=== PATIENT | male | born 1980 | race Caucasian/White ===

== ENCOUNTER 2016-12-12 16:00 | Emergency (ER) | payer MEDICAID ==
[2016-04-19 14:11] VITALS: BMI 26.3
[~2016-12-12 16:00] MED LIST: EFFEXOR XR150 MG PO; HYDROCODON-ACE1 EAC7 PO; HYDROCODONE-APA1 TAB PO; KLONOPIN0.5 MG PO; LAMICTAL200 MG PO; LEVAQUIN500 MG PO; PERCOCET 5-3251 TAB PO; ROBAXIN500 MG PO; ZOFRAN ODT4 MG/UDTAB PO
[2016-12-12 17:40] LABS: BASOPHILS 0.3 % (0-2); EOSINOPHILS 2.2 % (0-7); HEMATOCRIT 46.6 % (42.0-54.0); HEMOGLOBIN 16.4 g/dL (13.5-17.5); IMMATURE GRANULOCYTES 0.1 % (0-5); LYMPHOCYTES 37.3 % (15-50); MCH 33.3 pg (26.0-34.0); MCHC 35.2 g/dL (31.0-37.0); MCV 94.7 fL (80.0-100.0); MEAN PLATELET VOLUME 10.1 fL (7.4-10.4); MONOCYTES 8.7 % (2-11); NEUTROPHILS 51.4 % (40-80); PLATELET COUNT 246 10x3/uL (130-400); RBC 4.92 10x6/uL (4.20-6.10); RDW 13.3 % (11.5-14.5); WBC 7.9 10x3/uL (4.8-10.8)
[2016-12-12 17:55] LABS: ALBUMIN 3.9 g/dL (3.4-5.0); ALKALINE PHOSPHATASE 111 U/L (46-116); ALT (SGPT) 30 U/L (10-68); BILIRUBIN - TOTAL 0.29 mg/dL (0.2-1.3); CALC OSMOLALITY 279 mosm/kg (275-300); CALCIUM 9.1 mg/dL (8.5-10.1); CARBON DIOXIDE 28.6 mmol/L (21.0-32.0); CHLORIDE - SERUM 104 mmol/L (98-107); CREATININE - SERUM 0.9 mg/dL (0.6-1.3); GLUCOSE 95 mg/dL (74-106); LIPASE 163 U/L (73-393); POTASSIUM - SERUM 3.7 mmol/L (3.5-5.1); PROTEIN - SERUM 7.2 g/dL (6.4-8.2); SODIUM 141 mmol/L (136-145); UREA NITROGEN 11 mg/dL (7-18); eGFR NON AFRICAN AMERICAN > 90 mL/min (90-120)
== END 2016-12-12 19:50 | disposition home or self-care (01) ==
LOC: D.ER 16:00
PROVIDERS: Emergency Medicine
DX: R10.31 Right lower quadrant pain (principal); K40.90 Unilateral inguinal hernia, without obstruction or gangrene, not specified as recurrent; J45.909 Unspecified asthma, uncomplicated; F17.200 Nicotine dependence, unspecified, uncomplicated

== ENCOUNTER 2017-05-06 18:19 | Emergency (ER) | payer MEDICAID ==
[2016-04-19 14:11] VITALS: BMI 26.3
[2017-05-06 18:48] LABS: BASOPHILS 0.2 % (0-2); EOSINOPHILS 0.9 % (0-7); HEMATOCRIT 50.7 % (42.0-54.0); HEMOGLOBIN 17.9 g/dL (13.5-17.5); IMMATURE GRANULOCYTES 0.4 % (0-5); LYMPHOCYTES 27.5 % (15-50); MCH 33.6 pg (26.0-34.0); MCHC 35.3 g/dL (31.0-37.0); MCV 95.1 fL (80.0-100.0); MEAN PLATELET VOLUME 10.1 fL (7.4-10.4); MONOCYTES 7.2 % (2-11); NEUTROPHILS 63.8 % (40-80); PLATELET COUNT 283 10x3/uL (130-400); RBC 5.33 10x6/uL (4.20-6.10); RDW 12.7 % (11.5-14.5); WBC 10.6 10x3/uL (4.8-10.8)
[2017-05-06 19:03] LABS: ALBUMIN 4.5 g/dL (3.4-5.0); ALKALINE PHOSPHATASE 95 U/L (46-116); ALT (SGPT) 27 U/L (10-68); AMYLASE - SERUM 83 U/L (25-115); BILIRUBIN - TOTAL 0.44 mg/dL (0.2-1.3); CALC OSMOLALITY 279 mosm/kg (275-300); CALCIUM 9.1 mg/dL (8.5-10.1); CARBON DIOXIDE 26.6 mmol/L (21.0-32.0); CHLORIDE - SERUM 101 mmol/L (98-107); CREATININE - SERUM 0.9 mg/dL (0.6-1.3); GLUCOSE 127 mg/dL (74-106); LIPASE 523 U/L (73-393); POTASSIUM - SERUM 3.9 mmol/L (3.5-5.1); PROTEIN - SERUM 7.8 g/dL (6.4-8.2); SODIUM 140 mmol/L (136-145); UREA NITROGEN 9 mg/dL (7-18); eGFR NON AFRICAN AMERICAN > 90 mL/min (90-120)
== END 2017-05-06 23:53 | disposition home or self-care (01) ==
LOC: D.ER 18:19
PROVIDERS: Emergency Medicine
DX: K52.9 Noninfective gastroenteritis and colitis, unspecified (principal)

== ENCOUNTER 2017-05-09 19:39 | Emergency (ER) | payer MEDICAID ==
[2016-04-19 14:11] VITALS: BMI 26.3
[2017-05-09 20:09] LABS: BASOPHILS 0.3 % (0-2); EOSINOPHILS 1.1 % (0-7); HEMATOCRIT 47.5 % (42.0-54.0); HEMOGLOBIN 16.8 g/dL (13.5-17.5); IMMATURE GRANULOCYTES 0.1 % (0-5); LYMPHOCYTES 27.1 % (15-50); MCH 33.5 pg (26.0-34.0); MCHC 35.4 g/dL (31.0-37.0); MCV 94.6 fL (80.0-100.0); MEAN PLATELET VOLUME 9.9 fL (7.4-10.4); MONOCYTES 8.4 % (2-11); PLATELET COUNT 256 10x3/uL (130-400); RBC 5.02 10x6/uL (4.20-6.10); RDW 12.5 % (11.5-14.5)
[2017-05-09 20:24] LABS: ALBUMIN 4.4 g/dL (3.4-5.0); ALKALINE PHOSPHATASE 93 U/L (46-116); ALT (SGPT) 29 U/L (10-68); BILIRUBIN - TOTAL 0.34 mg/dL (0.2-1.3); CALC OSMOLALITY 275 mosm/kg (275-300); CALCIUM 8.8 mg/dL (8.5-10.1); CARBON DIOXIDE 24.7 mmol/L (21.0-32.0); CHLORIDE - SERUM 104 mmol/L (98-107); CREATININE - SERUM 0.9 mg/dL (0.6-1.3); GLUCOSE 106 mg/dL (74-106); POTASSIUM - SERUM 3.7 mmol/L (3.5-5.1); PROTEIN - SERUM 7.6 g/dL (6.4-8.2); SODIUM 139 mmol/L (136-145); UREA NITROGEN 8 mg/dL (7-18); eGFR NON AFRICAN AMERICAN > 90 mL/min (90-120)
== END 2017-05-09 22:38 | disposition home or self-care (01) ==
LOC: D.ER 19:39
PROVIDERS: Emergency Medicine
DX: K92.2 Gastrointestinal hemorrhage, unspecified (principal); K57.92 Diverticulitis of intestine, part unspecified, without perforation or abscess without bleeding

== ENCOUNTER 2017-09-16 13:11 | Emergency (ER) | payer MEDICAID ==
[2016-04-19 14:11] VITALS: BMI 26.3
[2017-09-16 13:43] LABS: BASOPHILS 0.2 % (0-2); EOSINOPHILS 0.9 % (0-7); HEMATOCRIT 48.1 % (42.0-54.0); HEMOGLOBIN 16.9 g/dL (13.5-17.5); IMMATURE GRANULOCYTES 0.2 % (0-5); LYMPHOCYTES 26.3 % (15-50); MCH 32.9 pg (26.0-34.0); MCHC 35.1 g/dL (31.0-37.0); MCV 93.8 fL (80.0-100.0); MEAN PLATELET VOLUME 9.9 fL (7.4-10.4); MONOCYTES 6.6 % (2-11); NEUTROPHILS 65.8 % (40-80); PLATELET COUNT 301 10x3/uL (130-400); RBC 5.13 10x6/uL (4.20-6.10); RDW 12.6 % (11.5-14.5); WBC 9.4 10x3/uL (4.8-10.8)
[2017-09-16 14:12] LABS: APPEARANCE CLEAR (CLEAR); BILIRUBIN NEGATIVE (NEGATIVE); COLOR YELLOW (YELLOW); GLUCOSE NEGATIVE (NEGATIVE); KETONE NEGATIVE (NEGATIVE); NITRITE NEGATIVE (NEGATIVE); PROTEIN NEGATIVE (NEGATIVE); SPECIFIC GRAVITY 1.015 (1.005-1.020); UROBILINOGEN NORMAL (NORMAL)
[2017-09-16 14:13] LABS: ALBUMIN 4.1 g/dL (3.4-5.0); ALKALINE PHOSPHATASE 109 U/L (46-116); ALT (SGPT) 28 U/L (10-68); BILIRUBIN - TOTAL 0.19 mg/dL (0.2-1.3); CALC OSMOLALITY 275 mosm/kg (275-300); CALCIUM 8.7 mg/dL (8.5-10.1); CARBON DIOXIDE 27.9 mmol/L (21.0-32.0); CHLORIDE - SERUM 100 mmol/L (98-107); CREATININE - SERUM 0.8 mg/dL (0.6-1.3); GLUCOSE 106 mg/dL (74-106); POTASSIUM - SERUM 3.6 mmol/L (3.5-5.1); PROTEIN - SERUM 7.3 g/dL (6.4-8.2); SODIUM 139 mmol/L (136-145); UREA NITROGEN 7 mg/dL (7-18); eGFR NON AFRICAN AMERICAN > 90 mL/min (90-120)
== END 2017-09-16 16:38 | disposition home or self-care (01) ==
LOC: D.ER 13:11
PROVIDERS: Emergency Medicine
DX: K40.90 Unilateral inguinal hernia, without obstruction or gangrene, not specified as recurrent (principal); F17.200 Nicotine dependence, unspecified, uncomplicated

== ENCOUNTER 2017-11-07 21:11 | Emergency (ER) | payer MEDICAID ==
[2016-04-19 14:11] VITALS: BMI 26.3
[2017-11-07 22:03] LABS: APPEARANCE CLEAR (CLEAR); COLOR YELLOW (YELLOW); GLUCOSE NEGATIVE (NEGATIVE); NITRITE NEGATIVE (NEGATIVE); PROTEIN NEGATIVE (NEGATIVE)
[2017-11-07 22:04] LABS: BILIRUBIN NEGATIVE (NEGATIVE); KETONE NEGATIVE (NEGATIVE); UROBILINOGEN NORMAL (NORMAL)
[2017-11-07 22:06] LABS: BASOPHILS 0.3 % (0-2); EOSINOPHILS 3.5 % (0-7); HEMATOCRIT 47.5 % (42.0-54.0); HEMOGLOBIN 16.9 g/dL (13.5-17.5); IMMATURE GRANULOCYTES 0.3 % (0-5); LYMPHOCYTES 22.6 % (15-50); MCH 33.3 pg (26.0-34.0); MCHC 35.6 g/dL (31.0-37.0); MCV 93.5 fL (80.0-100.0); MEAN PLATELET VOLUME 9.6 fL (7.4-10.4); MONOCYTES 6.4 % (2-11); NEUTROPHILS 66.9 % (40-80); PLATELET COUNT 248 10x3/uL (130-400); RBC 5.08 10x6/uL (4.20-6.10); RDW 13.1 % (11.5-14.5)
[2017-11-07 22:20] LABS: ALBUMIN 3.9 g/dL (3.4-5.0); ALKALINE PHOSPHATASE 109 U/L (46-116); ALT (SGPT) 34 U/L (10-68); CALC OSMOLALITY 272 mosm/kg (275-300); CALCIUM 8.6 mg/dL (8.5-10.1); CARBON DIOXIDE 28.6 mmol/L (21.0-32.0); CHLORIDE - SERUM 103 mmol/L (98-107); CREATININE - SERUM 0.8 mg/dL (0.6-1.3); GLUCOSE 97 mg/dL (74-106); POTASSIUM - SERUM 4.3 mmol/L (3.5-5.1); PROTEIN - SERUM 7.1 g/dL (6.4-8.2); SODIUM 136 mmol/L (136-145); UREA NITROGEN 14 mg/dL (7-18); eGFR NON AFRICAN AMERICAN > 90 mL/min (90-120)
[2017-12-03] MEDS ORDERED: ULTRAM50 MG PO (12:41)
[2017-12-03] MEDS ORDERED: IBUPROFEN800 MG PO (12:42)
== END 2017-11-07 22:45 | disposition home or self-care (01) ==
LOC: D.ER 21:11
PROVIDERS: Family Medicine
DX: R10.9 Unspecified abdominal pain (principal); K40.90 Unilateral inguinal hernia, without obstruction or gangrene, not specified as recurrent; K59.00 Constipation, unspecified; F17.200 Nicotine dependence, unspecified, uncomplicated

== ENCOUNTER 2017-12-04 06:10 | Day surgery (SDC) | payer MEDICAID ==
[~2017-12-04] VITALS: Ht 175.3 cm; Wt 90.3 kg
[~2017-12-04 06:10] MED LIST changes: +IBUPROFEN800 MG PO; +ULTRAM50 MG PO
[2017-12-04 07:31] VITALS: BP 123/76; Ht 175.3 cm; Wt 90.3 kg
[2017-12-04] MEDS ORDERED: LASIX20 MG PO (09:27)
[2017-12-04] MEDS ORDERED: FLOMAX0.4 MG PO (09:27)
[2017-12-04] MEDS ORDERED: NORCO 7.5/325 T1 TA1 PO (09:27)
== END 2017-12-04 11:40 | disposition home or self-care (01) ==
LOC: D.OPS 06:10 → D.PAN 09:00 → D.OPS 09:00 → D.PAN 11:00 → D.OPS 11:00
DX: K40.20 Bilateral inguinal hernia, without obstruction or gangrene, not specified as recurrent (principal); Z01.812 Encounter for preprocedural laboratory examination

== ENCOUNTER 2018-07-17 20:54 | Emergency (ER) | payer MEDICAID ==
[~2018-07-17] VITALS: Ht 175.3 cm; Wt 95.0 kg
[~2018-07-17 20:54] MED LIST changes: +FLOMAX0.4 MG PO; +LASIX20 MG PO; +NORCO 7.5/325 T1 TA1 PO
[2018-07-17 21:10] VITALS: Ht 175.3 cm; Wt 95.0 kg
[2018-07-17] MEDS ORDERED: CHOLESTEROL MEDS (21:13)
[2018-07-17] MEDS ORDERED: NEURONTIN 300300 MG PO (21:13)
[2018-07-17] MEDS ORDERED: ARTHRITIS MEDS (21:13)
[2018-07-17 21:41] LABS: BASOPHILS 0.1 % (0-2); EOSINOPHILS 0 % (0-7); HEMATOCRIT 44.4 % (42.0-54.0); HEMOGLOBIN 15.4 g/dL (13.5-17.5); IMMATURE GRANULOCYTES 0.4 % (0-5); LYMPHOCYTES 9.1 % (15-50); MCH 32.8 pg (26.0-34.0); MCHC 34.7 g/dL (31.0-37.0); MCV 94.5 fL (80.0-100.0); MEAN PLATELET VOLUME 10.1 fL (7.4-10.4); MONOCYTES 6.9 % (2-11); NEUTROPHILS 83.5 % (40-80); PLATELET COUNT 202 10x3/uL (130-400); RDW 13.6 % (11.5-14.5); WBC 14.3 10x3/uL (4.8-10.8)
[2018-07-17 21:50] LABS: APTT 27.8 SECONDS (22.8-39.4); INR 0.92 (0.85-1.17); PROTIME 11.9 SECONDS (11.6-15.0)
[2018-07-17 21:59] LABS: APPEARANCE CLEAR (CLEAR); BILIRUBIN NEGATIVE (NEGATIVE); COLOR YELLOW (YELLOW); GLUCOSE NEGATIVE (NEGATIVE); KETONE NEGATIVE (NEGATIVE); NITRITE NEGATIVE (NEGATIVE); PROTEIN NEGATIVE (NEGATIVE); UROBILINOGEN NORMAL (NORMAL)
[2018-07-17 22:01] LABS: ALBUMIN 3.7 g/dL (3.4-5.0); ALKALINE PHOSPHATASE 123 U/L (46-116); ALT (SGPT) 53 U/L (10-68); BILIRUBIN - TOTAL 0.24 mg/dL (0.2-1.3); CALC OSMOLALITY 274 mosm/kg (275-300); CALCIUM 8.1 mg/dL (8.5-10.1); CARBON DIOXIDE 25.9 mmol/L (21.0-32.0); CHLORIDE - SERUM 100 mmol/L (98-107); CREATININE - SERUM 0.8 mg/dL (0.6-1.3); GLUCOSE 140 mg/dL (74-106); POTASSIUM - SERUM 3.7 mmol/L (3.5-5.1); PROTEIN - SERUM 7.1 g/dL (6.4-8.2); SODIUM 137 mmol/L (136-145); UREA NITROGEN 10 mg/dL (7-18); eGFR NON AFRICAN AMERICAN > 90 mL/min (90-120)
[2018-07-17 22:10] LABS: AMYLASE - SERUM 38 U/L (25-115); CKMB 1.2 U/L (0.0-3.6); CREATINE KINASE 145 UL (21-232); LIPASE 153 U/L (73-393)
[2018-07-17] MEDS ORDERED: ZOFRAN ODT4 MG/UDTAB PO (22:47)
[2018-07-17] MEDS ORDERED: LEVSIN/ANASP0.125 MG PO (22:47)
[2018-07-17 23:08] VITALS: BP 142/79
== END 2018-07-17 23:08 | disposition home or self-care (01) ==
LOC: D.ER 20:54
PROVIDERS: Family Medicine
DX: R10.9 Unspecified abdominal pain (principal); F41.9 Anxiety disorder, unspecified; R07.9 Chest pain, unspecified; K59.00 Constipation, unspecified; D72.829 Elevated white blood cell count, unspecified; Z76.5 Malingerer [conscious simulation]

== ENCOUNTER 2018-08-11 14:19 | Emergency (ER) | payer MEDICAID ==
[~2018-08-11] VITALS: Ht 175.3 cm; Wt 96.4 kg
[~2018-08-11 14:19] MED LIST changes: +ARTHRITIS MEDS; +CHOLESTEROL MEDS; +LEVSIN/ANASP0.125 MG PO; +NEURONTIN 300300 MG PO
[2018-08-11 14:52] VITALS: BP 111/73; Ht 175.3 cm; Wt 96.4 kg
[2018-08-11] MEDS ORDERED: PROZAC20 MG PO (14:54)
[2018-08-11] MEDS ORDERED: TORADOL10 MG PO (16:45)
[2018-08-11] MEDS ORDERED: AMOXICILLIN500 M1 PO (16:45)
== END 2018-08-11 17:09 | disposition home or self-care (01) ==
LOC: D.ER 14:19
DX: R68.84 Jaw pain (principal)

== ENCOUNTER 2018-08-27 17:37 | Emergency (ER) | payer MEDICAID ==
[~2018-08-27] VITALS: Ht 175.3 cm; Wt 94.5 kg
[~2018-08-27 17:37] MED LIST changes: +AMOXICILLIN500 M1 PO; +PROZAC20 MG PO; +TORADOL10 MG PO
[2018-08-27 17:43] VITALS: BP 118/82; Ht 175.3 cm; Wt 94.5 kg
[2018-08-27] MEDS ORDERED: HYDROCODON-ACE1 EAC7 PO (17:46)
[2018-08-27 18:17] LABS: BASOPHILS 0.3 % (0-2); EOSINOPHILS 1.1 % (0-7); HEMOGLOBIN 16.5 g/dL (13.5-17.5); IMMATURE GRANULOCYTES 0.3 % (0-5); LYMPHOCYTES 20.8 % (15-50); MCHC 35.1 g/dL (31.0-37.0); MEAN PLATELET VOLUME 9.9 fL (7.4-10.4); MONOCYTES 9.5 % (2-11); RDW 13.5 % (11.5-14.5); WBC 11.8 10x3/uL (4.8-10.8)
[2018-08-27 18:30] LABS: PLATELET COUNT 282 10x3/uL (130-400)
[2018-08-27 18:46] LABS: ANION GAP 15.7 mmol/L (8-16); BILIRUBIN - TOTAL 0.41 mg/dL (0.2-1.3); CALCIUM 8.5 mg/dL (8.5-10.1); CARBON DIOXIDE 26.8 mmol/L (21.0-32.0); CREATININE - SERUM 1.2 mg/dL (0.6-1.3); POTASSIUM - SERUM 3.5 mmol/L (3.5-5.1); PROTEIN - SERUM 7.7 g/dL (6.4-8.2)
[2018-08-27 19:12] LABS: APPEARANCE CLEAR (CLEAR); BILIRUBIN NEGATIVE (NEGATIVE); COLOR YELLOW (YELLOW); GLUCOSE NEGATIVE (NEGATIVE); KETONE NEGATIVE (NEGATIVE); NITRITE NEGATIVE (NEGATIVE); PROTEIN NEGATIVE (NEGATIVE); SPECIFIC GRAVITY 1.025 (1.005-1.020); UROBILINOGEN NORMAL (NORMAL)
== END 2018-08-27 21:06 | disposition left against medical advice (07) ==
LOC: D.ER 17:37
PROVIDERS: Emergency Medicine
DX: G89.29 Other chronic pain (principal); R10.31 Right lower quadrant pain

== ENCOUNTER 2019-04-13 06:49 | Day surgery (SDC) | payer MEDICAID ==
[~2019-04-13] VITALS: Ht 175.3 cm; Wt 99.3 kg
--- NOTE | 2019-04-13 06:30 | NUR ---
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
[2019-04-13 06:43] VITALS: Ht 175.3 cm; Wt 99.3 kg
[~2019-04-13 06:49] MED LIST changes: +BAYER CHEWABLE81 MG PO; +FENOFIBRATE160 MG PO; +PRAVASTATIN SOD10 MG PO; +VALIUM 2 MG TAB2 MG PO; +ZETIA10 MG PO
[2019-04-13] MEDS ORDERED: HYDROCODON-ACE1 EAC7 PO (08:53)
--- NOTE | 2019-04-13 09:44 | NUR ---
D/C PT TO OUTPT WITH PAIN OF "6" PER ANESTHESIA. PT 94% SPO2 WITH 4LPM O2 VIA NC.
--- NOTE | 2019-04-13 10:12 | NUR ---
0957 PT ON BNC 4L/MIN. O2 SATURATION IS 93%. PT ENCOURAGED TO TAKE DEEP BREATHS AND COUGH WHILE SPLINTING WITH PILLOW.
--- NOTE | 2019-04-13 11:00 | NUR ---
DR GOMEZ NOTIFIED AND REVIEWED PT'S BEHAVIOR AND ASSESSMENT RESULTS. PT IS A LOW RISK PER DR GOMEZ. DR. GOMEZ STATED TO GIVE RESOURCES TO PT AT TIME OF DISCHARGE. NO FURTHER ORDERS AT THIS TIME. RESOURCES REVIEWED WITH PT AND HE VERBALIZED UNDERSTANDING. PT VEHEMENTLY DENIES SUICIDAL THOUGHTS AND IS ABLE TO EXPESS POSITIVE REASONS FOR LIVING.
--- NOTE | 2019-04-13 12:46 | NUR ---
1059 DR LOREDO CALLED ABOUT PT'S OXYGEN STATUS AND HERE TO EVALUATE. PT HAS BEEN VERY ANXIOUS TO LEAVE. BEHAVORIAL ASSESSMENT HAS BEEN COMPLETED BY PSYCH NURSE. DR LOREDO ASSESSED PT AND STATES THAT IT IS OK TO DISCHARGE PT HOME. PT HOLDING O2 SAT AT 96% CURRENTLY.
--- NOTE | 2019-04-13 12:50 | NUR ---
1055 IV DC'D. CATHETER TIP INTACT. NO BLEEDING AT SITE AFTER PRESSURE HELD. BANDAID APPLIED.
--- NOTE | 2019-04-13 12:53 | NUR ---
1050 PT HAS BEEN ON ROOM AIR FOR APPROXIMATELY 15 MINUTES. VERY ANXIOUS TO LEAVE. SLIGHT TREMORS NOTED IN HANDS. PT STATES TREMORS ARE NOT NEW AND THAT HE HAS "ESSENTIAL TREMORS"
== END 2019-04-13 11:05 | disposition home or self-care (01) ==
LOC: D.OPS 06:49 → D.PAN 08:00 → D.OPS 11:05
PROVIDERS: ATTEND Surgery
DX: K43.0 Incisional hernia with obstruction, without gangrene (principal)